=== PATIENT | male | born 1975 | race African-American/Black ===

== ENCOUNTER 2018-09-16 21:05 | Inpatient (IN) | payer MEDICARE, MEDICAID ==
[~2018-09-16] VITALS: Ht 185.4 cm; Wt 97.5 kg
--- NOTE | 2018-09-16 21:50 | NUR ---
CALLED [facility], SPOKE TO JOSEPH TRANSFER LINE RT AND FAXED EKG AND FACESHEET.
--- NOTE | 2018-09-16 22:00 | NUR ---
PT BIB [facility] C/O CP PRESSURE LIKE X3 HRS, NONRADIATING NONPROVOKED FROM PSYCH CENTER. RESP EVEN UNLABORED. SKIN WARM DRY. PT IS HEARD OF HEARING BUT ABLE TO COMMUNICATE BY WRITING. 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 A/OX4. IN ER BED ON MONITOR. PLACED ON 2L VIA NC FOR SUPPORT.
--- NOTE | 2018-09-16 22:00 | NUR ---
CALLED AND CONFIRMED RECEIPT OF FAXED PAPERWORK FROM JOSEPH
[2018-09-16] MEDS ORDERED: NITROGLYCERIN 0.4 MG/TAB BOTTLE ONE (22:09)
[2018-09-16] MEDS ORDERED: NITROGLYCERIN PACKET 1 GM PACKET ONE (22:09)
--- NOTE | 2018-09-16 22:15 | NUR ---
CALLED TO F/U WITH SIGN MAKER AND INFORMED BY JOSEPH "HE HAS THE PAPERWORK AND HE'LL CALL YOU BACK RACHELLE". INFORMED
[2018-09-16 22:24] LABS: BASOPHILS % (AUTO) 0.4 % (0.0-2.0); EOSINOPHILS % (AUTO) 0.8 % (0.0-6.0); HEMATOCRIT 49 % (39-51); HEMOGLOBIN 16.5 g/dL (13.5-17.5); LYMPHOCYTES # (AUTO) 2.3 /CMM (0.8-4.8); LYMPHOCYTES % (AUTO) 43.5 % (20.0-44.0); MEAN CORPUSCULAR HGB CONC 34 g/dl (31.0-36.0); MEAN CORPUSCULAR VOLUME 91 fL (80-96); MONOCYTES # (AUTO) 0.4 /CMM (0.1-1.30); MONOCYTES % (AUTO) 7.5 % (2.0-12.0); NEUTROPHILS # (AUTO) 2.5 /CMM (1.8-8.9); NEUTROPHILS % (AUTO) 47.8 % (43.0-81.0); PLATELET COUNT (AUTO) 220 /CMM (150-450); RED BLOOD CELL COUNT(AUTO) 5.41 MIL/uL (4.5-6.0); WHITE BLOOD COUNT (AUTO) 5.2 K/uL (4.3-11.0)
[2018-09-16] MEDS ORDERED: NITROGLYCERIN 0.4 MG/TAB BOTTLE SL ONE (22:30)
[2018-09-16] MEDS ORDERED: IV NS 0.9% 500 ML BAG IV ONE (22:30)
[2018-09-16] MEDS ORDERED: LABETALOL 20 MG/4 ML VIAL IV ONE (22:30)
[2018-09-16] MEDS ORDERED: NITROGLYCERIN PACKET 1 GM PACKET TD ONE (22:30)
--- NOTE | 2018-09-16 22:31 | NUR ---
CALLED [facility] AND SPOKE TO JOSEPH TRANSFER LINE NURSE AND STATES "WE ARE STILL WAITING FOR THE YARDAGE ESTIMATOR". DR. LUNA INFORMED.
[2018-09-16 22:33] LABS: CARBON DIOXIDE 33 mmol/L (21-32); CHLORIDE 98 mmol/L (98-107); GLUCOSE 197 mg/dL (74-106); POTASSIUM 4.3 mmol/L (3.5-5.1); SODIUM SERUM 136 mmol/L (136-145); UREA NITROGEN, BLOOD 16 mg/dL (7-18)
--- NOTE | 2018-09-16 22:36 | NUR ---
PER DR. LUNA "DR. BOLDEN SLAB INSPECTOR WONT TAKE THE PT UNLESS THERE'S A POSITIVE TROP"
[2018-09-16 22:45] LABS: ALANINE AMINOTRANSFERASE 33 U/L (12-78); ALBUMIN 3.5 g/dL (3.4-5.0); ALKALINE PHOSPHATASE 84 U/L (46-116); ASPARTATE AMINOTRANSFERASE 18 U/L (15-37); BILIRUBIN,TOTAL 0.4 mg/dL (0.2-1.0); TOTAL PROTEIN, SERUM 7.3 g/dL (6.4-8.2)
[2018-09-16 22:46] LABS: B-TYPE NATRIURETIC PEPTIDE 5 PG/ML (0-125)
[2018-09-16] MEDS ORDERED: LABETALOL HCL IV 100MG VIAL ONE (22:49)
--- NOTE | 2018-09-16 23:02 | NUR ---
PT REPORTS CP IS GRADUALLY DECREASING, BUT FEELS PALPITATIONS AND SOME ABD PAIN NOW.
[2018-09-16 23:32] LABS: D-DIMER 0.23 mg/L(FEU (0.17-0.50)
[2018-09-17] MEDS ORDERED: MAGNESIUM HYDROXIDE 30 ML UDC PO PRN
[2018-09-17] MEDS ORDERED: ONDANSETRON HCL/PF 4 MG/2 ML VIAL IVP PRN
[2018-09-17] MEDS ORDERED: ACETAMINOPHEN 325 MG TABLET PO PRN
[2018-09-17] MEDS ORDERED: MAG HYDROX/AL HYDROX/SIMETH 30 ML UDC PO PRN
[2018-09-17] MEDS ORDERED: ZOLPIDEM TARTRATE 5 MG TABLET PO PRN
[2018-09-17] MEDS ORDERED: Z GUARD REMEDY 2 OZ OINT TP PRN
[2018-09-17] MEDS ORDERED: HYDROCODONE/APAP 5/325MG 1 EACH TABLET PO PRN
--- NOTE | 2018-09-17 00:36 | NUR ---
DENIES CP AT THIS TIME. STILL ON MONITOR.
--- NOTE | 2018-09-17 00:38 | NUR ---
REPORT GIVEN TO TONY RUTH FOR CECELAI.
[2018-09-17] MEDS ORDERED: HYDR12.5 PO (00:45)
[2018-09-17] MEDS ORDERED: GLYB-214 PO (00:45)
[2018-09-17] MEDS ORDERED: ATOR10TA PO (00:45)
[2018-09-17] MEDS ORDERED: HYDR-4076 PO (00:45)
[2018-09-17] MEDS ORDERED: LISI-607 PO (00:45)
--- NOTE | 2018-09-17 00:48 | NUR ---
RN NOTE RECEIVED PATIENT FROM ER, ALERT/ORIENTED X 4, PATIENT HAS IMPAIRED HEARING AND NON ABLE TO SPEAK, HOWEVER ABLE TO WRITE DOWN AND ALERT/ORIENTED X 4, DX CHEST PAIN, CHEST PAIN 8/10, PAIN MEDICATION ADMINISTERED, WILL CONTINUE TO MONITOR, VITAL SIGNS TAKEN, SKIN IS INTACT, INSTRUCTED TO USE CALL LIGHT, ALL SAFETY MEASURES TAKEN, WILL CONTINUE TO MONITOR PATIENT
[2018-09-17 00:58] VITALS: BP 112/65
[2018-09-17] MEDS: ENOXAPARIN SODIUM 40 MG/0.4 ML DISP.SYRIN SQ SCH ×2 (01:16→20:56)
[2018-09-17] MEDS: IV NS 0.9% 1,000 ML IV PRN ×2 (01:19→23:22)
[2018-09-17] MEDS ORDERED: DEXTROSE 50%-WATER 50 ML DISP.SYRIN IV PRN (03:30)
[2018-09-17 04:00] VITALS: BP 96/55
[2018-09-17] MEDS: BLOOD SUGAR DIAGNOSTIC 1 EACH STRIP IN SCH ×4 (07:57→21:50)
[2018-09-17 08:00] VITALS: BP 118/72
[2018-09-17] MEDS: LISINOPRIL (5MG) 5 MG TABLET PO SCH (09:03)
[2018-09-17] MEDS: hydrALAZINE HCL 25 MG TABLET PO SCH ×3 (09:03→17:36)
[2018-09-17] MEDS: INSULIN REGULAR, HUMAN 100 UNIT/ML 3 ML VIAL SQ PRN ×3 (09:08→21:54)
[2018-09-17 09:55] LABS: BASOPHILS % (AUTO) 0.6 % (0.0-2.0); EOSINOPHILS % (AUTO) 0.7 % (0.0-6.0); HEMATOCRIT 47 % (39-51); HEMOGLOBIN 15.2 g/dL (13.5-17.5); LYMPHOCYTES # (AUTO) 2.2 /CMM (0.8-4.8); LYMPHOCYTES % (AUTO) 46.2 % (20.0-44.0); MEAN CORPUSCULAR HGB CONC 33 g/dl (31.0-36.0); MEAN CORPUSCULAR VOLUME 92 fL (80-96); MONOCYTES # (AUTO) 0.4 /CMM (0.1-1.30); MONOCYTES % (AUTO) 8.1 % (2.0-12.0); NEUTROPHILS # (AUTO) 2.1 /CMM (1.8-8.9); NEUTROPHILS % (AUTO) 44.4 % (43.0-81.0); PLATELET COUNT (AUTO) 186 /CMM (150-450); RED BLOOD CELL COUNT(AUTO) 5.05 MIL/uL (4.5-6.0); WHITE BLOOD COUNT (AUTO) 4.7 K/uL (4.3-11.0)
--- NOTE | 2018-09-17 10:30 | NUR ---
MS RN NOTE PATIENT SENT TO RADIOLOGY FOR ANGIO CT. CHEST PAIN RELIEVED V/S STABLE.
[2018-09-17] MEDS ORDERED: IOHEXOL-350 100 ML VIAL IV ONE (11:02)
[2018-09-17] MEDS ORDERED: IV NS 0.9% 250 ML IV ONE (11:02)
[2018-09-17] MEDS ORDERED: CT SWABBABLE VALVE TRANS SET 1 EA INFUS.SET MC ONE (11:02)
[2018-09-17] MEDS: METOPROLOL TARTRATE 50 MG TABLET PO SCH ×3 (11:06→23:42)
[2018-09-17] MEDS ORDERED: METOPROLOL TARTRATE INJ 5 MG/5 ML AMPUL ONE (11:45)
--- NOTE | 2018-09-17 12:30 | NUR ---
MS RN NOTE PATIENT COMPLETE CT, V/S 127/62 HR IS 82. NO S/S OF DISTRESS.
[2018-09-17 13:03] VITALS: BP 127/62
--- NOTE | 2018-09-17 13:09 | NUR ---
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 PATIENT IS DEAF/MUTE BUT CAN COMMUNICATE COMPETENTLY WITH PEN AND PAPER. PATIENT C/O OF CHEST PAIN 05/09, 02 2L VIA NC GIVEN, NOTIFIED. PATIENT HAS NO ORDERS FOR NITRO/MORPHINE, MD NOTIFIED PENDING ORDER. PATIENT O2 SATURATION IS 97% NO S.S OF RESPIRATORY DISTRESS. PATIENT HAS PENDING ANGIO CT. CONSENTS GIVEN AND SIGBED. RN WILL CONTINUE TO MONITOR. BED IN LOWEST LOCKED POSITION, SIDE RAILS UP X 2. Addendum: 09/17/18 at 1316 by ISAK FULLER RN NOTE WRITTEN FOR 0700
[2018-09-17 14:44] LABS: CALCIUM, SERUM 8.7 mg/dL (8.5-10.1); MAGNESIUM 1.6 mg/dL (1.8-2.4); PHOSPHORUS 4.2 mg/dL (2.5-4.9); POTASSIUM 4.5 mmol/L (3.5-5.1)
[2018-09-17 16:17] VITALS: BP 118/60
[2018-09-17] MEDS ORDERED: ATORVASTATIN 10 MG TABLET PO SCH (18:00)
--- NOTE | 2018-09-17 19:20 | NUR ---
MS RN INITIAL NOTES PATIENT RECEIVED SITTING UP IN BED, WATCHING TV. ALERT, ORIENTED X 4. PATIENT IS DEAF/MUTE BUT CAN COMMUNICATE COMPETENTLY WITH PEN AND PAPER. BREATHING EVEN AND UNLABORED. NOT IN ANY DISTRESS. NO COMPLAINTS OF PAIN OR DISCOMFORT OF THIS TIME. PERIPHERAL IV ON RFA INFUSING AT 75ML/HR. CALL PALAM WITHIN REACH. BED IN LOW, LOCKED POSITION. PATIENT STABLE ENDORSED BY THE MORNING RN. WILL CONTINUE TO MONITOR ACCORDINGLY
[2018-09-17] MEDS ORDERED: NITROGLYCERIN 0.4 MG/TAB BOTTLE SL PRN (19:30)
[2018-09-17 20:00] VITALS: BP_SYST 109; BP_SYST 113; BP_DIAS 59; BP_DIAS 62
[2018-09-17] MEDS ORDERED: MORPHINE SULFATE INJ 4 MG/ML DISP.SYRIN IV PRN (20:00)
[2018-09-17] MEDS ORDERED: Magnesium 1GM/D5W 100ML PREMIX PIGGYBACK IV ONE (21:00)
[2018-09-17] MEDS: Magnesium 1GM/D5W 100ML PREMIX 100 ML IV SCH ×2 (21:15→22:20)
--- NOTE | 2018-09-17 21:56 | NUR ---
RN NOTES BSL 150MG/DL. 2 UNITS OF INSULIN GIVEN PER SLIDING SCALE. PATIENT JUST HAD SNACKS
[2018-09-18 04:00] VITALS: BP_SYST 112; BP_SYST 115; BP_DIAS 53; BP_DIAS 60
[2018-09-18] MEDS: METOPROLOL TARTRATE 50 MG TABLET PO SCH ×2 (05:53→12:51)
--- NOTE | 2018-09-18 06:49 | NUR ---
MS RN CLOSING NOTES Patient in bed, alert, oriented x 4. Breathing even and unlabored. Not in any distress. No complaints as of this time. Peripheral IV infusing at 75mL/Hr. All needs attended to. All due medications given as ordered. Call boyle within reach. Bed in low, locked position. Will endorse continuity of care to oncoming RN
[2018-09-18] MEDS: BLOOD SUGAR DIAGNOSTIC 1 EACH STRIP IN SCH ×3 (07:30→17:02)
[2018-09-18 08:00] VITALS: BP 120/71
[2018-09-18] MEDS: hydrALAZINE HCL 25 MG TABLET PO SCH ×2 (08:14→12:51)
[2018-09-18] MEDS: LISINOPRIL (5MG) 5 MG TABLET PO SCH (08:15)
--- NOTE | 2018-09-18 08:15 | NUR ---
MS RN INITIAL NOTES Patient is awake, sitting up in bed, had breakfast with good appetite. Stable on room air, denies pain. Patient is mute and deaf, communicate with writing, wants to go home. IVF infusing, maintained safety, will cont to monitor.
--- NOTE | 2018-09-18 12:08 | NUR ---
Social service consult requested by Dr. Zambrano due to pt. coming from [facility]. Pt. is a 43 year old male who was admitted from [facility] for chest pain. HAWA met with pt. bedside. Pt. is alert and oriented x 4. Pt's mood is congruent. Pt. has impaired hearing and communicated effectively by writing. Pt. states he came from [facility] and would like to go back there once medically cleared. Pt. states he is still suicidal and has a plan to overdose on medication. Pt. also states, his personal belongings such as wallet, clothing and passport are at the psychiatric facility. HAWA informed pt. she will call [facility] regarding accepting pt. back. Pt. was under the care of Dr. Celis at [facility] located at [address] [place] [address], in [facility]. Pt. states he drinks alcohol mostly beer and does use cocaine, weed and cigarettes. Pt. last used cocaine two weeks ago. No other social service needs are requested at this time. HAWA informed welfare case worker Tala that pt. will need toxicology report prior to going back to [facility] if accepted. HAWA faxed clinical packet to intake at .
--- NOTE | 2018-09-18 12:19 | NUR ---
HAWA faxed discharge summary to intake at .
[2018-09-18] MEDS: INSULIN REGULAR, HUMAN 100 UNIT/ML 3 ML VIAL SQ PRN ×2 (12:47→17:02)
[2018-09-18 12:51] VITALS: BP 109/53
--- NOTE | 2018-09-18 13:57 | NUR ---
HAWA called Sophia in intake at [facility] to confirm she received HAWA's fax and if they will accept pt. back. Sophia informed HAWA that since pt. has cardiac needs he is more appropriate for their [place] location. Sophia requested for HAWA to contact RN Pinky at [facility] at x [phone]. HAWA contacted RN Pinky, who informed HAWA that if pt. agrees to go to [facility] location, to have pt's RN call her for clinical report. HAWA met with pt. bedside. HAWA informed pt. in writing that [facility] is wanting to send him to their [place] location and if he is willing to go. Pt. became anxious initially and stated his belongings are at [facility]. Pt. states three bags, 2 passports ( and [place]) and his wallet with ID, etc are at [facility]. HAWA called Sophia in intake at [facility] and informed her regarding pt's belongings. Sophia informed HAWA they will have his belongings sent to him at [facility] within two hours. HAWA informed pt. about it and pt. agreed to go to [facility] once his belongings arrive. HAWA informed director of casework department Tala and gave her the contact for Pinky to give to pt's RN for report. HAWA faxed list of pt. belongings that are at [facility] to Sophia in intake .
[2018-09-18 15:07] LABS: APPEARANCE,URINE SL CLOUDY (CLEAR); BILIRUBIN,URINE NEGATIVE (NEGATIVE); BLOOD, URINE NEGATIVE Ery/uL (NEGATIVE); COLOR,URINE YELLOW (YELLOW); KETONES,URINE NEGATIVE (NEGATIVE); LEUKOCYTE ESTERASE ,URINE NEGATIVE (NEGATIVE); NITRITE, URINE NEGATIVE (NEGATIVE); PH,URINE 5.5 (5.0-8.0); PROTEIN,URINE NEGATIVE (NEGATIVE); UGLUCOSE NEGATIVE (NEGATIVE); UROBILINOGEN,URINE 0.2 EU/dL (0.2)
--- NOTE | 2018-09-18 18:13 | NUR ---
MS RN DISCHARGED Patient has been cleared for discharge by . VSS, skin intact, no episode of chest pain during the shift. Ambulates independently. Discharge instruction given to patient, verbalized understanding. Belongings check and send with the patient upon DC. Called [facility]. spoke with TONY Maldonado for report. Patient left [facility] in stable condition via ambulance.
== END 2018-09-18 18:19 | DRG 206 ==
LOC: ER 21:13 → TELE1 09-17 00:38 → MEDSG1 09-17 10:03
PROVIDERS: ADMIT Internal Medicine; ATTEND Internal Medicine
DX: M94.0 Chondrocostal junction syndrome [Tietze] (principal); R45.851 Suicidal ideations; E11.9 Type 2 diabetes mellitus without complications; E78.5 Hyperlipidemia, unspecified; I10 Essential (primary) hypertension; F25.9 Schizoaffective disorder, unspecified; Z87.891 Personal history of nicotine dependence; H91.90 Unspecified hearing loss, unspecified ear; Z79.84 Long term (current) use of oral hypoglycemic drugs
CPT/HCPCS: 36415; 71045-TC; 75574; 80048-TC; 80061-TC; 80076-TC; 80305; 81000-TC; 82962-TC; 83735-TC; 83880; 84100-TC; 84484-TC; 85025-TC; 85378-TC; 85730-TC; 87081-TC; 93307-TC; A4606; G0378; J1650; J1815; J3475; J3490; J7030; J7040; J7050; Q9967; Z7610